=== PATIENT | female | born 1995 | race Caucasian/White ===

== ENCOUNTER 2021-04-22 10:49 | Emergency (ER) | payer OTHER, SELFPAY ==
[2021-04-22 11:35] VITALS: BP 115/65; PULSE 75; RESP 18; TEMP 37; O2SAT 98; BMI 27.4
--- NOTE | 2021-04-22 11:45 | HMH.EDUTC ---
[facility] – [place] Disposition Clinical Impression: Upper respiratory infection, viral Disposition: Home, Self-Care Condition on Discharge: Good Instructions: DI for Viral Upper Respiratory Infection -- Adult Additional Instructions: covid swab was sent to lab, call tomorrow for results. self isolate until test results are known to be negative No sign of a bacterial infection. Likely viral. Viruses can take 7-14 days to run their course. Nasal saline and bulb syringe or nose Justine to remove nasal drainage to help with nasal congestion. Hard to eat, drink, sleep with nasal congestion so important to keep this cleaned out. Monitor temp. Tylenol or Motrin as needed for pain or fever Encourage fluids, water, Gatorade, Powerade, Pedialyte if /toddler/child Warm salt water gargles Warm fluids Sore throat lozenges Sleep elevated Humidifier/vaporizer Follow-up immediately for new or worsening symptoms or no noticeable improvement over the next 48-72 hours. Prescriptions: Fluticasone Propionate [Flonase 50mcg nasal spray 16gm] 1 spr NS DAILY 14 Days #9.9 ml Transmission Status: Pending to [facility] # predniSONE [Prednisone 20mg Tab] 20 mg PO BID #10 tab Transmission Status: Pending to [facility] # Referrals: Tiburcio Mathew [Primary Care Provider] - Time of Disposition: 12:05 Medical Decision Making - Nathan Inquiry Pt receiving controlled substance: No Vital Signs: 04/22/21 11:35 Temperature 98.6 F Temperature Source Oral Pulse Rate [Right Brachial] 75 Respiratory Rate 18 Blood Pressure [Right Arm] 115/65 Blood Pressure Mean [Right Arm] 81 Blood Pressure Source [Right Arm] Automatic Cuff Blood Pressure Position [Right Arm] Sitting 02 Sat by Pulse Oximetry 98 Oxygen Delivery Method Room Air Orders (Tests/Meds): ORDERS Category Date Time Status Covid-19 Nasal PCR ([facility]) Routine Lab 04/22/21 11:48 Ordered [facility] [place] HPI - General Chief complaint: Urgent [facility] Stated complaint: sore throat, cough, congestion, covid test Time Seen by Provider: 04/22/21 11:45 Mode of Arrival: Ambulatory Source of Information: Patient Limitations: No Limitations Description of Symptoms (Recalled from Triage Doc. by RN): PATIENT C/O SORE THROAT, COUGH AND FATIGUE X 2 DAYS HEENT Symptoms (Recalled from RN notes): Yes Resp Symptoms (Recalled from RN notes): Yes Skin Symptoms (Recalled from RN notes): No MS Symptoms (Recalled from RN notes): No Functional Status (Recalled from RN notes): WNL - History of Present Illness Provider Complaint: 25 yr old vivek presents for cough, clear nasal drainge,sinus pressure and sore throat for 2 days - Related Data Previous Rx's Medication Instructions Recorded Fluticasone Propionate [Flonase 1 spr NS DAILY 14 Days #9.9 ml 04/22/21 50mcg nasal spray 16gm] predniSONE [Prednisone 20mg 20 mg PO BID #10 tab 04/22/21 Tab] Allergies Allergy/AdvReac Type Severity Reaction Status Date / Time No Known Allergies Allergy Verified 04/22/21 11:43 - Worker's Comp Is this a Worker's Comp case?: No [facility] History - Hepatitis A Screen Drug use history?: No High risk sexual behaviors?: No History of sexually transmitted infection?: No Currently employed?: No Childcare worker?: No Do you have indoor plumbing?: Yes Do you have electricity?: Yes Attestation statement:: This patient has been screened for Hepatitis A risk factors. I have reviewed the patient's past medical history: Yes ROS Obtained: Yes Systems reviewed as appropriate & no additional complaints - Constitutional Constitutional: Reports system reviewed and no additional complaints, except as docu, Denies chills - Eyes Eyes: Reports system reviewed and no additional complaints, except as docu, Denies blurry vision - ENT Ears, Nose, Mouth, and Throat: Reports system reviewed and no additional complaints, except as docu, Reports nasal congestion, Reports nasal discharg
[2021-04-22 11:49] LABS: UTC Strep Screen (Rapid) Negative (Negative)
[2021-04-22 12:08] VITALS: BP 115/65; PULSE 75; RESP 18; TEMP 37; O2SAT 98
== END 2021-04-22 12:12 | disposition home or self-care (01) ==
PROVIDERS: Emergency Provider Nurse Practitioner Family; PCP Pediatrics
DX: J06.9 Acute upper respiratory infection, unspecified (principal); J02.9 Acute pharyngitis, unspecified; R53.82 Chronic fatigue, unspecified; Z20.822 Contact with and (suspected) exposure to COVID-19
CPT/HCPCS: 87880; 99283; C9803; U0003; U0005

== ENCOUNTER 2022-11-21 16:38 | Emergency (ER) | payer OTHER, SELFPAY ==
--- NOTE | 2022-11-21 16:38 | ECG_ITS ---
APPROVED REPORT Exam: Resting ECG HR:90 bpm ECG Measurements Heart Rate 90 AXES OH 133 P 56 QRSd 98 QRS 67 QT 341 T 22 QTc 389 Conclusion SINUS RHYTHM WITH SINUS ARRHYTHMIA NONSPECIFIC ST & T-WAVE ABNORMALITY BORDERLINE ECG UNCONFIRMED REPORT Electronically signed by : Mt V[place] MD 11/22/2022 07:30:18
[2022-11-21 16:40] VITALS: BP 112/63; PULSE 73; RESP 14; TEMP 36.7; O2SAT 100; BMI 23.9
--- NOTE | 2022-11-21 16:46 | XR_ITS ---
PROCEDURE INFORMATION: Exam: XR Chest Exam date and time: 11/21/2022 5:05 PM Age: 27 years old Clinical indication: Cough; Patient HX: HX smoker; Additional info: Cough, congestion, lung pain TECHNIQUE: Imaging protocol: Radiologic exam of the chest. Views: 2 views. COMPARISON: No relevant prior studies available. FINDINGS: Lungs: No evidence of acute pulmonary disease or infiltrates; lung adame appear clear. Pleural spaces: No evidence of pleural effusion, pneumothorax, or pleural thickening in the visualized pleural spaces. Heart/Mediastinum: No evidence of mediastinal widening or cardiac silhouette enlargement; the mediastinum and heart appear within normal limits for contour and size. Bones/joints: No evidence of acute osseous abnormalities within the visualized portions of the thoracic spine and ribs. Osseous structures appear appropriate for patient age. IMPRESSION: Negative study. No acute cardiopulmonary abnormalities identified. Osseous structures within the visualized portions of the thoracic spine and ribs show no acute abnormalities and appear appropriate for patient age.
[2022-11-21 17:11] LABS: Chloride 106 mmol/L (98-107); Potassium 3.4 mmoL/L (3.5-5.1); Sodium 140 mmol/L (136-145)
[2022-11-21 17:13] LABS: Basophils % 0.3 % (0.1-2.0); Eosinophils # 0.2 K/mm3 (0.0-0.4); Hemoglobin 15.8 g/dL (12.2-16.2); Lymphocytes # 2.6 K/mm3 (0.7-4.5); Lymphocytes % 31.3 % (10-50); Mean Corpuscular HGB Conc 32.8 g/dL (31.8-35.4); Mean Corpuscular Hemoglobin 30.7 pg (27.0-31.2); Mean Corpuscular Volume 93.4 fl (81-99); Mean Platelet Volume 8.3 fl (7.4-10.4); Monocytes # 0.5 K/mm3 (0.1-1.0); Monocytes % 6.1 % (1.7-9.3); Neutrophils % 60.2 % (37.0-80.0); Platelet Count 266 K/mm3 (142-424); Red Blood Count 5.14 M/mm3 (4.20-5.40); Red Cell Distribution Width 12.6 % (11.5-17.5); White Blood Count 8.2 K/mm3 (4.8-10.8)
[2022-11-21 17:14] LABS: Alanine Aminotransferase 26 U/L (12-78); Albumin Level 4.7 g/dl (3.5-5.0); Albumin/Globulin Ratio 1.5 (1.1-1.8); Alkaline Phosphatase 56 U/L (38-126); Anion Gap 13.4 mEq/L (5-15); Aspartate Amino Transferase 32 U/L (14-36); Bilirubin,Total 0.6 mg/dl (0.2-1.3); Blood Urea Nitrogen 9 mg/dl (7-17); Carbon Dioxide 24 mmol/L (22.0-30.0); Creatinine Clearance Estimated 118 mL/min (50-200); Estimated Glomerular Filt Rate 101 ml/min (>60); GFR (African American) 122 ML/MIN (>60); Globulin 3.1 g/dL (1.3-3.2); Total Protein,Serum 7.8 g/dl (6.3-8.2)
[2022-11-21 17:15] LABS: Calcium 9.3 mg/dl (8.4-10.2); Glucose 98 mg/dl (74-100)
[2022-11-21 17:20] VITALS: BP 109/46; PULSE 73; O2SAT 100
[2022-11-21 17:27] LABS: Troponin I < 0.01 ng/ml (0.00-0.034)
[2022-11-21 17:30] VITALS: BP 119/60; PULSE 72; O2SAT 100
--- NOTE | 2022-11-21 17:38 | PC.NURSE ---
Dr. Dela Cruz at [facility]
[2022-11-21 18:00] VITALS: BP 119/59; PULSE 69; O2SAT 100
[2022-11-21 18:30] VITALS: BP 127/61; PULSE 60; O2SAT 99
[2022-11-21 19:19] VITALS: BP 123/74; PULSE 78; RESP 20; TEMP 36.8; O2SAT 98
--- NOTE | 2022-11-22 14:35 | HMH.EDGENADL ---
Discharge Plan Disposition Patient Disposition: Home, Self-Care Condition: Good Prescriptions Prescriptions: No Action prednisone 20 MG tablet 20 mg PO BID Qty: 10 0RF fluticasone propionate 120 SPR/BOT bottle 1 spr NS DAILY 14 Days Qty: 9.9 0RF Referrals Follow up/Referrals: Tiburcio Mathew [Primary Care Provider] - See instructions Clinical Impressions Clinical Impression: Palpitations Discharge ED Provider: Vince Dela Cruz General Adult HPI General Chief complaint: PAIN Stated complaint: Chest pain Time Seen by Provider: 11/21/22 16:55 Mode of Arrival: Wheelchair Limitations: No Limitations Description of Symptoms (Recalled from ER Triage Doc. by RN): PT REPORTS HER LUNGS HAVE BEEN FEELING HEAVY FOR APPROX 2 WEEKS, COUGH AND CONGESTION THAT STARTED TODAY. PT REPORTS HAS HAD INTERMITTENT PAIN IN MIDSTERNAL AREA OF CHEST, NO PAIN AT THIS TIME. History of Present Illness HPI narrative: The patient presents with a chief complaint of chest pain and lung heaviness for the past couple of weeks. They report coughing earlier and experiencing a sensation of something wanting to come up, along with gurgling sounds upon breathing. The patient describes the chest pain as localized in the middle and non-radiating. They have a history of similar symptoms in the past. The patient has a past medical history of a congenital heart defect, which resolved during childhood, and eosinophilic esophagitis (EOE) with no recent flare-ups. They report waking up with chest pain and pressure sensation in the mornings. The patient denies recent exposure to sick individuals and has not experienced any fevers. The patient has no known lung problems but admits to a history of vaping. They have been experiencing hair loss for the past year and a half and reported tingling in their lips earlier. The patient is not currently taking any medications or control and reports feeling fatigued. They experienced pain upon taking a deep breath after coughing earlier, localized to the right side. Related Data Previous Rx's Medication Instructions Recorded fluticasone propionate 50 1 spr NS DAILY 14 days #9.9 mL 04/22/21 mcg/actuation nasal spray,suspension prednisone 20 mg tablet 20 mg PO BID #10 tabs 04/22/21 Allergies Allergy/AdvReac Type Severity Reaction Status Date / Time No Known Allergies Allergy Verified 04/22/21 11:43 [facility] Disclaimer: The information contained in this section may have been updated after the patient was seen, as this information can be updated by other users. Social History Smoking Status: Former smoker alcohol intake: current current occupational status: other Travel in the last 8 weeks: None ROS Obtained: Yes Systems reviewed as appropriate & no additional complaints except as documented Physical Exam General General appearance: alert and in no apparent distress Head Head exam: atraumatic and normocephalic Eye Eye exam: Present normal appearance Neck Neck exam: Present normal inspection Chest Chest inspection: Present normal inspection and symmetric chest wall rise Respiratory Respiratory exam: Present normal lung sounds bilaterally; Absent respiratory distress Cardiovascular Cardiovascular exam: Present regular rate and normal rhythm Abdominal Exam Abdominal exam: Present soft Neurological Exam Neurological exam: Present alert and oriented X3 Psychiatric Psychiatric exam: Present normal affect and normal mood Skin Skin exam: Present warm and dry Medical Decision Making Medical Records Medical records reviewed: Yes I reviewed the patient's medical records. Nathan Inquiry Pt receiving controlled substance: No Vital Signs: 11/21/22 16:40 11/21/22 17:20 11/21/22 17:30 Temperature 98.0 F Temperature Source Oral Pulse Rate 73 72 Pulse Rate [Right Radial] 73 Respiratory Rate 14 Blood Pressure 109/46 L 119/60 Blood Pressure [Right Arm] 112/63 Blo
== END 2022-11-21 19:20 | disposition home or self-care (01) ==
PROVIDERS: Emergency Provider Emergency Medicine; PCP Pediatrics
DX: R07.89 Other chest pain (principal); R00.2 Palpitations; I49.8 Other specified cardiac arrhythmias; R05.9 Cough, unspecified; Z87.891 Personal history of nicotine dependence
CPT/HCPCS: 71046; 80053; 84484; 85025; 93005; 99284